=== PATIENT | female | born 1945 | race Caucasian/White ===

== ENCOUNTER 2017-02-18 15:21 | Outpatient (CLI) | payer MEDICARE, OTHER ==
--- NOTE | 2017-02-19 08:36 | MRI ---
MRI CERVICAL SPINE WITHOUT CONTRAST: Technique: Multiplanar, multisequential imaging of the cervical spine obtained. History: Cervical radiculopathy. FINDINGS: Vertebral bodies maintain height. There is mild anterior subluxation at C3-4 estimated at 2-3 mm. Sli ght posterior subluxation at C4-5. There is loss of disc space throughout the cervical spine. There i s partial fusion at C5-6. C2-3: Mild disc bulge and spondylosis flattens the thecal sac. The anterior subarachnoid space is pre served. C3-4: Disc bulge and spondylosis abuts the anterior cord. Bilateral foraminal narrowing due to uncina te and facet hypertrophy. C4-5: Disc bulge and spondylosis impinges on a mildly dense anterior cord. This change is slightly mo re pronounced to the left of midline. Bilateral foraminal stenosis, more pronounced on the left at th is level. C5-6: Spondolytic change abuts the anterior cord. No evidence of significant foraminal stenosis. C6-7: Posterior subluxation at C6 on C7 estimated at 3-4 mm. Disc bulge and spondylosis abuts the ant erior cord. Bilateral foraminal narrowing due to facet and uncinate hypertrophy. Cervical cord signal is normally preserved. IMPRESSION: 1. Multilevel degenerative disc changes throughout the cervical spine with mild subluxations at sever al levels as noted above. 2. Posterior disc bulge and spondolytic changes are prominent at C3-4, C4-5, C5-6 and C6-7 levels. Se e description of each level above. POS: [facility]
== END 2017-02-18 15:22 | disposition home or self-care (01) ==
LOC: SCSMRI 15:21
PROVIDERS: ATTEND Specialist
DX: M47.22 Other spondylosis with radiculopathy, cervical region (principal)
CPT/HCPCS: 72141

== ENCOUNTER 2018-01-19 10:22 | Outpatient (CLI) | payer MEDICARE, OTHER ==
--- NOTE | 2018-01-19 13:36 | ULT ---
THYROID ULTRASOUND: DATE: 01/19/2018. HISTORY: Thyroid nodule. COMPARISON: 01/16/2017. TECHNIQUE: Multiplanar, reilly scale sonographic imaging of the thyroid gland obtained. FINDINGS: Thyroid isthmus measures 2 mm in AP dimension. The right lobe measures 4.7 x 1.6 x 1.6 cm and the le ft lobe measures 4.6 x 1.6 x 1.6 cm. A solid heterogeneously hypoechoic nodule is seen in the region of the thyroid isthmus measuring 7 x 6 x 4 mm, not significantly changed. There is a complex solid and cystic nodule within the inferior aspect of the right lobe measuring 7 x 4 x 6 mm, similar when compared to the prior examination as well. Additional tiny nodules are seen scattered throughout the mid and upper right lobe measuring in the 3-4 mm range. There is a mildly complex cystic nodule in the upper aspect of the left lobe measuring 4 x 4 x 5 mm. There is a dominant solid heterogeneously hypoechoic nodule in the mid and lower aspect of the left l obe measuring 2.7 x 1.6 x 2.0 cm. This is not appreciably changed when compared to the prior examina tion. In addition, the patient underwent fine needle aspiration of this lesion 01/06/2017. IMPRESSION: Stable thyroid nodules as detailed above, the dominant nodule being a solid heterogeneously hypoechoi c nodule within the mid and lower aspect of the left lobe of the thyroid gland, not significantly michelle nged when compared to the prior examination and status post fine needle aspiration on 01/06/2017. POS: [facility]
== END 2018-01-19 10:23 | disposition home or self-care (01) ==
LOC: SCSULT 10:22
PROVIDERS: ATTEND Otolaryngology Plastic Surgery within the Head & Neck
DX: E04.2 Nontoxic multinodular goiter (principal)
CPT/HCPCS: 76536

== ENCOUNTER 2021-04-23 09:51 | Outpatient (CLI) | payer MEDICARE, OTHER ==
[2021-04-24 02:46] LABS: SARS-CoV-2 PCR by NAA Indeterminate (NotDetected)
== END 2021-04-23 09:52 | disposition home or self-care (01) ==
LOC: LABBT 09:51
PROVIDERS: ATTEND Family Medicine
DX: Z01.812 Encounter for preprocedural laboratory examination (principal); Z20.822 Contact with and (suspected) exposure to COVID-19
CPT/HCPCS: U0003; U0005

== ENCOUNTER 2021-04-25 11:02 | Outpatient (CLI) | payer MEDICARE, OTHER | END 2021-04-25 11:03 | disposition home or self-care (01) | PROVIDERS: ATTEND Physician Assistant Medical | DX: R13.10 Dysphagia, unspecified (principal); K21.9 Gastro-esophageal reflux disease without esophagitis | CPT/HCPCS: 74230 ==